=== PATIENT | female | born 1955 | race Caucasian/White ===

== ENCOUNTER → 2017-04-28 | Outpatient (CLI) | payer BC ==
[~2017-04-28] MED LIST: NO HOME MEDS
--- NOTE | 2017-04-29 07:53 | MAMMOGRAPHY REPORT ---
BILATERAL DIGITAL SCREENING MAMMOGRAM TOMOSYNTHESIS WITH CAD: 04/28/2017 CLINICAL HISTORY: Routine screening. Patient has no complaints. TECHNIQUE: Breast tomosynthesis in addition to standard 2D mammography was performed. Current study was also evaluated with a Computer Aided Detection (CAD) system. COMPARISON: Comparison is made to exams dated: 04/04/2015 mammogram, 04/26/2016 mammogram, 03/07/2014 valery mogram, 01/31/2012 mammogram, 12/03/2010 mammogram, and 09/01/2009 ultrasound - [facility] ter. BREAST COMPOSITION: The tissue of both breasts is heterogeneously dense, which may obscure small mas ses. FINDINGS: There is a 13 mm focal asymmetry with associated architectural distortion in the approxima te 9:00 posterior right breast, for which additional targeted ultrasound is recommended. Another que stionable area of distortion is identified in the lateral middle one third of the right breast on the CC view, for which additional spot compression tomosynthesis views and possible ultrasound are recom mended. There is a stable metallic biopsy marker clip in the left breast. No other suspicious mass, architec tural distortion or cluster of microcalcifications is seen bilaterally. IMPRESSION: ACR BI-RADS CATEGORY 0: INCOMPLETE EVALUATION: NEED ADDITIONAL IMAGING EVALUATION The 13 mm focal asymmetry with associated architectural distortion in the 9:00 posterior right breast , and possible architectural distortion in the lateral right breast need additional imaging evaluatio n. The patient will be called to schedule an appointment. Approximately 10% of breast cancers are not detected with mammography. A negative mammographic report should not delay biopsy if a clinically suggestive mass is present. Billie Barrow M.D. ay/:04/28/2017 21:17:04 Circulation Director: Sade CELESTIN)(Pope[place]), [facility] letter sent: Addl Imaging 0 BI-RADS Code: ACR BI-RADS Category 0: Incomplete Evaluation: Need Additional Imaging Evaluation
== END | disposition home or self-care (01) ==
LOC: C.MAMM 09:00
PROVIDERS: ATTEND Family Medicine
DX: R92.8 Other abnormal and inconclusive findings on diagnostic imaging of breast (principal); N64.89 Other specified disorders of breast

== ENCOUNTER → 2017-05-01 | Outpatient (CLI) | payer BC | END | disposition home or self-care (01) | LOC: C.PAPS 09:05 | PROVIDERS: ATTEND Obstetrics & Gynecology | DX: Z01.419 Encounter for gynecological examination (general) (routine) without abnormal findings (principal) ==

== ENCOUNTER → 2017-05-05 | Outpatient (CLI) | payer BC ==
--- NOTE | 2017-05-05 12:36 | MAMMOGRAPHY REPORT ---
UNILATERAL RIGHT DIGITAL DIAGNOSTIC MAMMOGRAM TOMOSYNTHESIS AND TARGETED RIGHT ULTRASOUND: 05/05/2017 CLINICAL HISTORY: 62-year-old woman called back from screening mammography for a focal asymmetry in t he 9:00 right breast. Family history of breast cancer = paternal aunt. History of prior right breas t benign surgery and left breast benign ultrasound-guided core biopsy. TECHNIQUE: Spot compression right CC and MLO 2-D and tomosynthesis images were obtained. COMPARISON: Comparison is made to exams dated: 04/28/2017 mammogram, 04/26/2016 mammogram, 04/04/2015 ma mmogram, 03/07/2014 mammogram, 03/04/2013 mammogram, and 01/31/2012 mammogram - [facility]. BREAST COMPOSITION: The tissue of the right breast is heterogeneously dense, which may obscure small masses. FINDINGS: There is a persistent irregular mass with associated architectural distortion in the 8:00 to 9:00 posterior right breast, measuring approximately 13 x 15 x 17 mm mammographically. No other f ocal area of distortion, mass or suspicious calcifications are seen in the right breast. Further radha luation with ultrasound was performed. Targeted ultrasound was performed in the 8:00 to 10:00 axes of the right breast and also in the right axilla. In the 8:00 axis, 8 cm from the nipple, there is an irregular hypoechoic shadowing mass alicja suring 15 x 12 x 9 mm. The ultrasound measurements may slightly underestimate the mass. This mass i s suspicious for malignancy and further evaluation with ultrasound-guided core needle biopsy is recom mended. Additional scanning performed in the right axilla demonstrates several lymph nodes with bord eligio thickened cortices. One in particular has a cortex measuring 3.4 mm which is indeterminate. Definitive characterization with an ultrasound-guided core biopsy is recommended to assess for the po ssibility of metastatic disease. IMPRESSION: ACR BI-RADS CATEGORY 5: HIGHLY SUGGESTIVE OF MALIGNANCY, TARGETED ULTRASOUND ACR BI-RADS CATEGORY 5: HIGHLY SUGGESTIVE OF MALIGNANCY 1. Ultrasound guided core needle biopsy is recommended for an indeterminate irregular 15 mm hypoecho ic shadowing mass in the 8:00 right breast, 8 cm from the nipple. 2. Ultrasound-guided core biopsy is also recommended for a lymph node in the right axilla with minim ally thickened cortex, to assess for the possibility of metastatic disease. These results and recommendations were discussed with the patient at the time of the exam. She tenta tively scheduled biopsies prior to leaving our department. Approximately 10% of breast cancers are not detected with mammography. A negative mammographic report should not delay biopsy if a clinically suggestive mass is present. Billie Barrow M.D. ay/:05/05/2017 09:06:36 Infrastructure Manager: Grace VIDAL(Aleks)(Popeye), [facility] letter sent: Abnormal 4/5 BI-RADS Code: ACR BI-RADS Category 5: Highly Suggestive Of Malignancy Ultrasound BI-RADS: ACR BI-RAD S Category 5: Highly Suggestive Of Malignancy
== END | disposition home or self-care (01) ==
LOC: C.MAMM 08:29
PROVIDERS: ATTEND Family Medicine
DX: N64.89 Other specified disorders of breast (principal); Z80.3 Family history of malignant neoplasm of breast; N63.0 Unspecified lump in unspecified breast

== ENCOUNTER → 2017-05-12 | Outpatient (CLI) | payer BC ==
--- NOTE | 2017-05-12 10:30 | Discharge Instructions ---
Discharge Instructions Procedure Procedure Date: May 12, 2017. Reason for visit: Right Mass, Right Axillary Node. Discharge Discharge Date: May 12, 2017. Discharge Diagnosis: post right breast and axillary lymph node ultrasound guided core biopsies Medications Restart Stopped Medication(s): May restart Aspirin tomorrow Instructions Activity Recommendations: Additional Limitations (see below) Return to School/Work: no limitations Recommended Home Diet: No Limitations Provider Instructions: ACTIVITY RECOMMENDATIONS: * No lifting, pushing, pulling or exercising the affected side for three days. RETURN TO SCHOOL/WORK: * You may return to work/school after the procedure, but do not perform any strenuous activities for 24 to 48 hours. MEDICATIONS: * Tylenol (two 325 mg) every four to six hours if needed for mild pain (if not allergic to Tylenol). DIET: * Resume previous diet. SPECIAL CARE INSTRUCTIONS: * Keep biopsy site dry for 24 hours. May shower after 24 hours, but do not soak (bathe) incision. * May remove Tegaderm (plastic patch) tomorrow AFTER showering. * Leave the steri-strips on for one week. Allow the steri-strips to fall off by themselves. If not off after one week, you may remove them. You may place a Bandaid crosswise over the strips, if desired. * Apply ice 10 minutes on and 10 minutes off as needed. * Wear a bra at bedtime to sleep more comfortably for 2-3 days. * Your referring physician should have the results after approximately 5 to 7 business days. * Call for unusual bleeding, fever, drainage, etc or if you have any questions call [phone] during normal business hours or after hours call Dr Barrow, . FOLLOW UP VISIT: Follow-up with Referring Physician as scheduled. Allergies Coded Allergies: Latex (Unverified Allergy, Severe, RASH, 03/16/14) NOTE WITH EXTENDED EXPOSURE Penicillins (Unverified Allergy, Severe, HIVES AND SWELLING, 03/16/14) Elio Valdez Recommendations: Call your doctor if: * Temperature above 101 degrees * Pain not relieved by pain medicine ordered * There is increased drainage or redness from any incision * You have any unanswered questions or concerns. Your Doctors Instructions noted above were prepared by provider Billie Barrow. Patient Signature Section: Patient Instructions Signature Page Pinky Alex Patient (or Guardian) Signature/Date: I have read and understand the instructions given to me by my caregivers. Caregiver/RN/Doctor Signature/Date: The above-named patient and/or guardian has received patient instructions on this date. + Original Patient Signature Page (only) stays with chart. Please make copy for patient.
--- NOTE | 2017-05-12 14:14 | MAMMOGRAPHY REPORT ---
ULTRASOUND GUIDED BIOPSY: 05/12/2017 CLINICAL HISTORY: Right axillary lymph node with undulating mildly thickened cortex. Patient present s for right axillary lymph node biopsy. An ultrasound guided core biopsy was also performed for a hy poechoic mass in the 8:00 right breast at the same time. Please refer to the report from right breast ultrasound guided core biopsy performed at the same time for full detail. IMPRESSION: ULTRASOUND GUIDED BIOPSY Please refer to the report from right breast ultrasound guided core biopsy performed at the same time for full detail. Billie Barrow M.D. ay/:05/12/2017 12:26:41 Intranet Support: Patricia Bauman, [facility]
--- NOTE | 2017-05-12 14:14 | MAMMOGRAPHY REPORT ---
MULTIPLE ULTRASOUND GUIDED BIOPSIES RIGHT BREAST: 05/12/2017 CLINICAL HISTORY: Indeterminate hypoechoic spicular mass in the 8:00 right breast, and right axillary lymph node with mildly prominent cortex. Patient presents for right breast and right axillary ultra sound guided core biopsy. COMPARISON: Comparison is made to exams dated: 05/05/2017 ultrasound, 05/05/2017 mammogram, 04/28/2017 mammogram, 04/26/2016 mammogram, 04/04/2015 mammogram, and 03/07/2014 mammogram - [facility]ter. PATIENT CONSENT: The procedure, risks and benefits were discussed with the patient and informed conse nt was obtained both verbally and in writing. Specific risks to this procedure include: bleeding, in fection, puncture of adjacent structure, nontarget biopsy, sampling error, pain, metal allergy and me dication reaction. PROCEDURE DESCRIPTION: First repeat targeted ultrasound was performed in the 8:00 axis of the right b reast and right axilla for planning and targeting purposes during the biopsies. A hypoechoic shadowi ng solid mass is again seen in the 8:00 right breast and this is the intended target for ultrasound-g uided core biopsy. The lymph node with undulating and mildly thickened cortex in the right axilla is also identified, also amenable to ultrasound-guided core needle biopsy. A time out was performed and the right breast and axilla were agreed as the sites of biopsy. The ski n was prepped and draped in the usual sterile fashion. First, the hypoechoic shadowing mass in the 8 :00 right breast was chosen as the target for biopsy. Subcutaneous and intraparenchymal 1% buffered l idocaine, with and without epinephrine, was administered as local anesthesia. A skin incision was mad e. Through the incision, 4 samples were taken with a 14 gauge Achieve biopsy device. A ribbon shaped metallic marker was placed at the biopsy site. Hemostasis was achieved after manual compression. The patient tolerated the procedure well and there was no immediate complication. Then, the right axillary lymph node with undulating and mildly thickened cortex was identified and ta rgeted for biopsy. Additional 1% buffered lidocaine without epinephrine was administered as local an esthesia. A small skin incision was made. Through the incision, 3 core biopsy samples were taken wi th an 18-gauge quick core biopsy device. A ring shaped metallic marker was placed within this lymph node after biopsy. The patient tolerated the procedure well and there was no immediate consultation. Hemostasis was achieved after several minutes of manual compression. All of the samples were sent to the pathology department in appropriately labeled containers. Postprocedure right CC and ML tomosynthesis images were obtained. A new ribbon-shaped biopsy marker clip is seen within the spiculated mass in the 8:00 posterior right breast, without evidence of surro unding hematoma. A ring shaped biopsy marker clip is seen within a right axillary lymph node on the MLO view. No significant axillary hematoma is seen. IMPRESSION: ULTRASOUND GUIDED BIOPSY Status post ultrasound-guided core biopsy of a suspicious right 8:00 breast mass, and right axillary lymph node with mildly thickened cortex. The patient will receive notification of the biopsy results from her referring physician. Billie Barrow M.D. ay/:05/12/2017 12:30:29 Attending Technologist: Dr. Billie Barrow, [facility] [address] [facility] Cnp: Patricia Bauman, [facility] [address]
--- NOTE | 2017-05-12 14:16 | MAMMOGRAPHY REPORT ---
UNILATERAL RIGHT DIGITAL DIAGNOSTIC MAMMOGRAM TOMOSYNTHESIS: 05/12/2017 CLINICAL HISTORY: Status post ultrasound guided core biopsy of an indeterminate hypoechoic solid mass in the 8:00 right breast, and right axillary lymph node with mildly thickened cortex. Please refer to the report from right breast ultrasound guided core biopsy performed at the same time for full detail. IMPRESSION: POST PROCEDURE IMAGING FOR MARKER PLACEMENT Please refer to the report from right breast ultrasound guided core biopsy performed at the same time for full detail. Approximately 10% of breast cancers are not detected with mammography. A negative mammographic report should not delay biopsy if a clinically suggestive mass is present. Billie Barrow M.D. ay/:05/12/2017 10:32:57 [employer] Supervisor: Patricia Bauman, [facility] BI-RADS Code: Post Procedure Imaging For Marker Placement
== END | disposition home or self-care (01) ==
LOC: C.MAMM 09:32
PROVIDERS: ATTEND Family Medicine
DX: R92.8 Other abnormal and inconclusive findings on diagnostic imaging of breast (principal); N63.10 Unspecified lump in the right breast, unspecified quadrant; C50.911 Malignant neoplasm of unspecified site of right female breast

== ENCOUNTER 2017-06-04 08:14 | Observation (INO) | payer BC ==
--- NOTE | 2017-05-28 08:53 | PAT Medication Instructions ---
Service Date May 28, 2017. Current Home Medication List Aspirin (Aspirin Ec), 81 MG PO QAM Calcium Carbonate-Vitamin D (Calcium + D), 1 TAB PO QAM Cetirizine (Zyrtec), 10 MG PO PRN Ibuprofen Tab (Advil), 400 MG PO PRN Medication Instructions For Your Scheduled Surgery - Held prior to breast bx: Aspirin (Aspirin Ec), 81 MG PO QAM - Hold the following medications the morning of surgery: Calcium Carbonate-Vitamin D (Calcium + D), 1 TAB PO QAM Cetirizine (Zyrtec), 10 MG PO PRN Ibuprofen Tab (Advil), 400 MG PO PRN (otherwise okay to continue per surgeon) Nothing to eat or drink after midnight If you have any questions please call us at [phone] or [phone] or [phone]
[2017-05-28 10:16] LABS: BASO % 0.2 %; BASO ABS # 0.02 K/uL (0-0.2); COMPLETE YES; EOS % 4.2 %; IG% 0.7 %; LYMPH % 31.4 %; LYMPH ABS # 2.75 K/uL (1.2-3.4); MEAN CELL VOLUME 99.1 fL (80-100); MEAN CORPUSCULAR HEMOGLOBIN 33.8 pg (25-34); MEAN CORPUSCULAR HGB CONC 34.1 g/dl (32-36); MEAN PLATELET VOLUME 10.2 fL (7.4-10.4); MONO % 8.7 %; NEUT % 54.8 %; PLATELET COUNT 314 K/uL (130-400); RED BLOOD COUNT 4.64 M/uL (4.2-5.4); WHITE BLOOD COUNT 8.77 K/uL (4.8-10.8)
[2017-05-28 10:28] LABS: BUN/CREATININE RATIO 22.5 (10-20); CALCIUM 9.4 mg/dl (8.5-10.1); CREATININE 0.88 mg/dl (0.60-1.20); POTASSIUM 5.2 mmol/L (3.5-5.1)
[~2017-06-04] VITALS: Ht 147.3 cm; Wt 66.0 kg
[2017-06-04] VITALS (7 sets, daily range): BP systolic 114–150; BP diastolic 66–86; PULSE 72–81; TEMP 36.4–36.9; O2SAT 94–98; Ht 147.3 cm; Wt 66.0 kg
[~2017-06-04 08:14] MED LIST changes: +ASPI81TA28 PO; +CALC600T9 PO; +CETI10TA84 PO; +CLINDAMYCIN IV 900 MG in DEXTROSE 5% 100ML 100 ML IV SCH; +CLINDAMYCIN IV 900 MG in DEXTROSE 5% 50ML 50 ML IV SCH; +IBUP-103 PO; -NO HOME MEDS; +SODIUM CHLORIDE 0.9% 1000ML 1,000 ML IV SCH
--- NOTE | 2017-06-04 09:34 | History & Physical Bridge Note ---
H&P Re-Evaluation Bridge Note: I have examined the patient, reviewed the History & Physical and in the interval since the performance of the History & Physical I have noted the following changes of clinical significance: No changes noted
--- NOTE | 2017-06-04 10:48 | DIAGNOSTIC IMAGING REPORT ---
LYMPHOSCINTIGRAPHY CLINICAL HISTORY: Right breast cancer. PROCEDURE: Using standard sterile technique, 4 intradermal periareolar and one deep injection of 0.482 mCi of Lymphoseek was placed in the right breast. The patient tolerated the procedure well. There were no immediate complications. The patient was subsequently transported to the surgical suite. No imaging was obtained at the referring physician's request. IMPRESSION: Injection of 0.482 mCi of Lymphoseek in the right breast. Electronically signed by: Kenji Hanna M.D. 06/04/2017 10:47 AM Dictated Date/Time: 06/04/2017 10:47 AM
[2017-06-04 11:21] LABS: BUN/CREATININE RATIO 24.9 (10-20); CALCIUM 8.5 mg/dl (8.5-10.1); CREATININE 0.73 mg/dl (0.60-1.20); POTASSIUM 4.2 mmol/L (3.5-5.1)
[2017-06-04] MEDS ORDERED: FENTANYL CITRATE INJ 50 MCG/1 ML 2 ML VIAL ONE ×2 (12:58→15:08)
[2017-06-04] MEDS ORDERED: MIDAZOLAM HCL 1 MG/ML 2ML VIAL ONE (12:58)
[2017-06-04] MEDS ORDERED: BUPIVACAINE 0.5 % 5 MG/1 ML MPF 30ML VIAL ONE (14:34)
[2017-06-04] MEDS ORDERED: METHYLENE BLUE 0.5% 10 ML VIAL ONE (14:34)
[2017-06-04] MEDS ORDERED: ONDANSETRON INJ 2 MG/ML 2 ML VIAL ONE (14:38)
[2017-06-04] MEDS ORDERED: LIDOCAINE HCL 2% 2 ML VIAL (20MG/ML) ONE (14:38)
[2017-06-04] MEDS ORDERED: PROPOFOL IV EMULSION 10 MG/ML 20 ML VIAL IV ONE (14:38)
[2017-06-04] MEDS ORDERED: DEXAMETHASONE SOD INJ 4 MG/ML VIAL ONE (14:38)
[2017-06-04] MEDS ORDERED: EpHEDrine SULFATE INJ 50 MG/ML AMP IV PRN (14:45)
[2017-06-04] MEDS ORDERED: ATROPINE SULFATE 0.1 MG/ML 5ML SYR IV PRN (14:45)
[2017-06-04] MEDS ORDERED: FENTANYL CITRATE INJ 50 MCG/1 ML 2 ML VIAL IV PRN (14:45)
[2017-06-04] MEDS ORDERED: PROMETHAZINE HCL INJ 12.5 MG in SODIUM CHLORIDE 0.9% 50ML 50 ML IV PRN ×2 (14:45→16:30)
[2017-06-04] MEDS ORDERED: NALOXONE HCL 0.4 MG/1 ML VIAL/CARP IV PRN (14:45)
[2017-06-04] MEDS ORDERED: FLUMAZENIL 0.1 MG/1 ML 10 ML VIAL IV PRN (14:45)
[2017-06-04] MEDS ORDERED: LABETALOL HCL IV 5 MG/ML 20ML IV PRN (14:45)
[2017-06-04] MEDS ORDERED: ONDANSETRON INJ 2 MG/ML 2 ML VIAL IV PRN ×2 (14:45→16:00)
[2017-06-04] MEDS ORDERED: EpHEDrine SULFATE 50MG/5ML SYR ONE (15:08)
--- NOTE | 2017-06-04 15:32 | MAMMOGRAPHY REPORT ---
UNILATERAL RIGHT DIGITAL DIAGNOSTIC MAMMOGRAM TOMOSYNTHESIS: 06/04/2017 CLINICAL HISTORY: Biopsy proven carcinoma in the 8:00 posterior right breast. Patient presents for p reoperative needle and wire localization. These images were obtained after ultrasound guided localiz ation to assess alignment of the localizing needle and wire with the biopsy marker clip. Please refer to the report from right breast ultrasound-guided needle localization performed at the s bennett time for full detail. IMPRESSION: Please refer to the report from right breast ultrasound-guided needle localization performed at the s bennett time for full detail. Approximately 10% of breast cancers are not detected with mammography. A negative mammographic report should not delay biopsy if a clinically suggestive mass is present. Billie Barrow M.D. ay/:06/04/2017 12:25:47 Otolaryngology Physician: Patricia VIDAL(Aleks)(M), [facility] BI-RADS Code: n/a
--- NOTE | 2017-06-04 15:48 | [facility] Operative Report ---
Operative Report Operative Date Jun 04, 2017. Pre-Operative Diagnosis Right Breast Cancer Post-Operative Diagnosis Right Breast Cancer Procedure(s) Performed Right Breast Lumpectomy with Needle Localization and Right [place] Lymph Node Biopsy Surgeon Dr. Harley Pickle Pumper Surgeon(s) Vladimir Quigley PA-C Estimated Blood Loss 20 cc Findings breast tissue, old bx scar, addnl Rt axillary tissue Specimens Frozen #1 Right [place] Lymph Node picked up at 1507 Permanent A: Right Axillary Node B: Right Breast Tissue needle lateral, long silk anterior superior, short silk medial C: Additional Right Breast Tissue long silk anterior, short silk inferior edge, double short silk superior, methylene blue new margin Anesthesia gen Complication(s) None Disposition Recovery Room / PACU I attest to the content of the Intraoperative Record and any orders documented therein. Any exceptions are noted below.
[2017-06-04] MEDS ORDERED: MoRPHine SULFATE 4 MG/ML 1 ML CARP\\VIAL IV PRN (16:00)
[2017-06-04] MEDS ORDERED: HYDROCODONE/ACETAMOPHEN 5/325MG TAB PO PRN ×2 (16:00)
[2017-06-04] MEDS ORDERED: LORAZEPAM INJ 0.5 MG in SYRINGE 0.25 ML IV PRN (16:00)
[2017-06-04] MEDS ORDERED: MoRPHine SULFATE 2 MG/ML CARP IV PRN (16:00)
[2017-06-04] MEDS ORDERED: PROMETHAZINE HCL INJ 25 MG in SODIUM CHLORIDE 0.9% 50ML 50 ML IV PRN (16:00)
--- NOTE | 2017-06-04 16:30 | Anesthesiology Progress Note ---
Anesthesia Post Op Note Date & Time Jun 04, 2017 at 16:30 Vital Signs Pain Intensity: 4 Vital Signs Past 12 Hours Date Time Temp Pulse Resp B/P (MAP) Pulse Ox O2 Delivery O2 Flow Rate FiO2 06/04/17 16:20 74 11 128/74 100 Oxymask 10 06/04/17 16:10 77 10 141/79 100 Oxymask 10 06/04/17 16:02 36.0 100 15 134/78 99 Oxymask 10 06/04/17 10:38 36.9 73 18 150/86 (107) 98 Room Air Notes Mental Status: alert / awake / arousable, participated in evaluation Pt Amnestic to Procedure: Yes Nausea / Vomiting: adequately controlled Pain: adequately controlled Airway Patency, RR, SpO2: stable & adequate BP & HR: stable & adequate Hydration State: stable & adequate Anesthetic Complications: no major complications apparent
--- NOTE | 2017-06-04 17:32 | OPERATIVE REPORT ---
DATE OF OPERATION: 06/04/2017 NAME OF OPERATION: Right partial mastectomy and sentinel lymph node biopsy. PREOPERATIVE DIAGNOSIS: Right breast cancer. POSTOPERATIVE DIAGNOSIS: Same. STAFF SURGEON: Dr. Harley. VPK TEACHER: Ishmael Quigley PA-C. ANESTHESIA: General. PROCEDURE IN DETAIL: The patient was brought in the operating room and placed on the operating table in supine position. Her right breast and axilla were prepped and draped in the usual fashion. She had a needle placed in the lateral right breast and also had an injection for sentinel lymph node biopsy. Using 0.5% plain Marcaine, incision was made in the right axilla, carrying dissection down deeply into the axilla, identifying a sentinel lymph node which had high activity. Prior to that I did see 2 other lymph nodes which were sent for permanent section. The sentinel lymph node was negative. At this point, during the frozen section, lumpectomy was performed, making an incision laterally and inferiorly in the right breast around the needle, carrying dissection down, excising the tissue. Initial tissue, the needle was lateral, long silk suture medial, short silk suture superior anterior. This was placed into the Faxitron and sent to Dr. Barrow. The biopsy specimen area was in the center of the tissue. At this point, I took additional tissue around where the mass was suspected to be inferiorly, medially and superiorly as well as anterior. The tissue was marked with a long silk suture anterior, short silk suture inferior, double silk superior with methylene blue on the new margin. This seemed to incorporate scar tissue from an old biopsy site where she also had a metal marker. At this point deep tissue was reapproximated in both sites using 2-0 plain catgut suture. Then the axillary skin closed using 4-0 nylon suture, breast skin closed using interrupted 5-0 Prolene suture. Dressings applied and patient transferred to recovery room in stable condition. I attest to the content of the Intraoperative Record and any orders documented therein. Any exception s are noted below.
[2017-06-04] MEDS ORDERED: IV FLUIDS COMPLETED PRN (17:45)
[2017-06-04] MEDS ORDERED: LACTATED RINGER'S 1000ML 1,000 ML IV SCH (18:45)
[2017-06-04] MEDS: CLINDAMYCIN IV 600 MG in DEXTROSE 5% 50ML 50 ML IV SCH (21:28)
[2017-06-04] MEDS ORDERED: CLINDAMYCIN 600 MG/54 ML D5W IV SCH (22:00)
[2017-06-05 03:21] VITALS: BP 104/65; PULSE 74; TEMP 36.5; O2SAT 96
[2017-06-05] MEDS: CLINDAMYCIN IV 600 MG in DEXTROSE 5% 50ML 50 ML IV SCH (05:38)
[2017-06-05] MEDS ORDERED: HYDR-5688 PO (05:56)
--- NOTE | 2017-06-05 05:58 | Discharge Instructions ---
Discharge Instructions Date of Service Jun 05, 2017. Admission Reason for Admission: Right Breast Cancer W/Hosp Loc & Lymph Inj Discharge Discharge Diagnosis / Problem: breast cancer Discharge Goals Goal(s): Decrease discomfort, Improve function, Improve disease control Activity Recommendations Activity Limitations: as noted below Lifting Limitations: no more than 25 pounds Exercise/Sports Limitations: until after follow-up appointment May Resume Sexual Activity: when tolerated Shower/Bathe: tomorrow Driving or Machine Use: wait 4-[address] SPECIAL CARE INSTRUCTIONS: * Cover incisions and change daily for comfort/drainage. * May use ibuprofen for pain as tolerated. * Expect some swelling and bruising. Call your doctor if: * Temperature above 101 degrees * Pain not relieved by pain medicine ordered * There is increased drainage or redness from any incision * You have any unanswered questions or concerns [phone]. FOLLOW UP VISIT: If not already scheduled, please call the office for a follow-up visit. for next week- some suture removal OFFICE PHONE NUMBER: Dr. Harley Office . Current Hospital Diet Patient's current hospital diet: Regular Diet Discharge Diet Recommended Diet: Regular Diet Procedures Procedures Performed: Right Breast Lumpectomy with Needle Localization and Right [place] Lymph Node Biopsy Pending Studies Studies pending at discharge: no Medical Emergencies . Who to Call and When: Medical Emergencies: If at any time you feel your situation is an emergency, please call 911 immediately. . Non-Emergent Contact Non-Emergency issues call your: Primary Care Provider, Surgeon . "Provider Documentation" section prepared by Reynaldo Harley. . VTE Core Measure Inpt VTE Proph given/why not?: SCD's
--- NOTE | 2017-06-05 06:40 | DISCHARGE SUMMARY ---
PRINCIPAL DIAGNOSIS: Right breast cancer. PROCEDURES: The patient underwent right partial mastectomy with sentinel lymph node biopsy. HISTORY OF PRESENT ILLNESS: The patient is a 62-year-old female who underwent a core biopsy of the right breast showing a breast cancer. She was brought into the hospital on 06/04/2017 where she underwent needle localization and breast injection and then right partial mastectomy with sentinel lymph node biopsy. She tolerated the procedure well and has done well overnight and is felt stable for discharge home today to be followed in the surgical clinic next week.
[2017-06-05 06:56] VITALS: BP 104/65; PULSE 74; TEMP 36.5; O2SAT 96
[2017-06-05 07:35] VITALS: BP 119/75; PULSE 66; TEMP 36.6; O2SAT 96
--- NOTE | 2017-06-05 07:44 | MAMMOGRAPHY REPORT ---
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 She presents for preoperative needle and wire localization. COMPARISON: Comparison is made to exams dated: 05/12/2017 ultrasound biopsy, 05/12/2017 mammogram, 05/12/2017 ultrasound biopsy, 05/05/2017 ultrasound, 05/05/2017 mammogram, and 04/28/2017 mammogram - [facility]. PATIENT CONSENT: The risks of the procedure were explained to the patient and informed consent was ob tained. The patient denied any or drinking anything this morning that would preclude anesthesia. Sh e also denied allergy to lidocaine. PROCEDURE DESCRIPTION: Post procedure mammograms dated 05/12/2017 were reviewed. The hypoechoic adore d and spiculated mass in the 8:00 right breast is the intended target for preoperative localization. The patient was positioned supine with right arm extended above head. The skin of the right breast was cleansed with Betadine. 1% buffered Lidocaine without epinephrine was administered as local anes thesia. A 7.5cm Thakur II needle and wire combination was inserted into the breast. Optimal position ing was confirmed and the wire was locked in place, leaving both the needle and wire within the breas t, as per surgeon's preference. Post localization right CC and MLO 2-D and tomosynthesis images were obtained. The localizing needle and wire combination is visualized abutting the biopsy marker clip and extending through the mass in question. The entire procedure including approach and needle lengt h were discussed with the operating surgeon prior to surgery. The patient tolerated the procedure we ll and there was no immediate complication. She was sent to the operating room in satisfactory condi tion. The specimen radiograph demonstrates the localizing needle and wire, as well as a central mass with i nternal biopsy marker clip. These findings are compatible with successful preoperative localization and subsequent surgical excision. IMPRESSION: NEEDLE LOCALIZATION Status post successful preoperative localization of biopsy-proven carcinoma in the 8:00 right breast. The imaged specimen includes the intended abnormality. The patient will receive notification of the pathology results from her referring physician. Billie Barrow M.D. ay/:06/04/2017 16:32:33 Attending Technologist: Patricia CELESTIN)(M), [facility] Business Systems Administrator: Dr. Billie Barrow, [facility]
--- NOTE | 2017-06-16 12:48 | OPERATIVE REPORT ---
DATE OF OPERATION: 06/04/2017 ADDENDUM This is an addendum of the operation on 06/04/2017, which was a right partial mastectomy with sentinel lymph node biopsy with my assisted living assistant, Ishmael Quigley. My physician assisted living assistant, Ishmael Quigley, helped me during this operation to perform prepping and draping of the patient and then was instrumental in retraction during the sentinel lymph node biopsy as well as utilization of this Neoprobe. He was also instrumental in helping to retract during the right partial mastectomy as well as closure of both incisions of the deep tissue and then also of the skin. He also helped with placing of dressings at the end of the procedure. I attest to the content of the Intraoperative Record and any orders documented therein. Any exception s are noted below.
== END 2017-06-05 09:51 | disposition home or self-care (01) ==
LOC: C.ACU 08:14 → C.MSW 13:45 → ENRESERV 16:23
PROVIDERS: ADMIT Surgery; ATTEND Surgery
DX: C50.911 Malignant neoplasm of unspecified site of right female breast (principal); E78.5 Hyperlipidemia, unspecified; F17.200 Nicotine dependence, unspecified, uncomplicated; Z79.82 Long term (current) use of aspirin; J44.9 Chronic obstructive pulmonary disease, unspecified; E66.9 Obesity, unspecified; Z98.51 Tubal ligation status

== ENCOUNTER → 2017-06-20 | Outpatient (CLI) | payer BC ==
[~2017-06-20] MED LIST changes: -CLINDAMYCIN IV 900 MG in DEXTROSE 5% 100ML 100 ML IV SCH; -CLINDAMYCIN IV 900 MG in DEXTROSE 5% 50ML 50 ML IV SCH; +HYDR-5688 PO; -SODIUM CHLORIDE 0.9% 1000ML 1,000 ML IV SCH
--- NOTE | 2017-06-23 14:47 | MAMMOGRAPHY REPORT ---
BREAST MRI OF BOTH BREASTS : 06/20/2017 CLINICAL HISTORY: Recent right breast lumpectomy which showed invasive carcinoma as well as DCIS. Th e medial, superior, and inferior margins were positive for DCIS. The margins were negative for invas mee carcinoma. [place] lymph node biopsy was negative for hal metastasis. COMPARISON: Comparison is made to exams dated: 06/04/2017 mammogram, 05/12/2017 ultrasound biopsy, 05/12/2017 mammogram, 06/04/2017 specimen, 05/12/2017 ultrasound biopsy, and 05/05/2017 mammogram - [facility]. Technique: The patient was placed prone in a dedicated breast imaging coil. Precontrast axial T1-antonio ghted, axial T2-weighted fat saturation, and axial T1-weighted fat saturation images were obtained. After the administration of 6 mL of Gadavist IV contrast, sequential T1-weighted fat saturation image s were obtained. Subtraction images were obtained of the dynamic contrast enhanced sequences, and 3- D reformations were performed. The [employer] software was used for kinetic analysis. Findings: Right breast: There is mild background parenchymal enhancement. There are postsurgical changes in th e right breast from recent lumpectomy. There is a large T2 hyperintense fluid collection in the righ t breast, centered in the right central breast and extending superiorly to the 12:00 breast and infer iorly to the right lower outer quadrant at approximately 7:00. The collection measures up to 2.0 x 7 .1 x 4.5 cm and is consistent with a postsurgical seroma/hematoma (series 4 image 40, series 6 image 99). There is a rim of enhancement surrounding the fluid collection, which is predominately thin alt aylin is slightly thicker along the lateral aspect of the seroma in the right lower outer quadrant (s eries 91328 image 78). Additionally, there is ill-defined non-mass enhancement surrounding the super ior portion of the fluid collection and extending superiorly to the right upper outer quadrant at rose roximately 11:00. The non-mass enhancement is ill-defined and therefore difficult to measure but ext ends approximately 3.9 cm superior to the fluid collection (series 6 image 103 and series 32421 image s 45-60). No discrete nodular/mass-like enhancement is seen within the right breast. The enhancemen t surrounding the fluid collection is nonspecific on imaging and could represent postsurgical changes versus residual DCIS. Left breast: There is minimal background parenchymal enhancement. There is a 3 mm focus of enhanceme nt within the left breast at approximately 9:30 middle depth (series 99481 image 69). This demonstra arvind no corresponding T2 hyperintensity and a mixed kinetic pattern including washout kinetics. This is indeterminate and MRI guided core needle biopsy is recommended for further evaluation. There are other small enhancing foci scattered within the left breast, which are probably benign and likely rep resent normal background parenchymal enhancement. Clip artifact is seen within the left 11:00 breast . Post surgical changes are noted in the right axilla from sentinel lymph node biopsy, including a T2 h yperintense fluid collection with a thin rim of enhancement in the high right axilla measuring 2.6 x 2.1 cm, consistent with a postsurgical hematoma/seroma. There are mildly prominent right axillary ly mph nodes, which are likely benign given that sentinel lymph node biopsy and prior core needle biopsy of right axillary lymph nodes yielded no evidence of metastases. There is no evidence of left axill madhav adenopathy. The chest wall structures are negative. Extramammary soft tissues are grossly unrema rkable. IMPRESSION: ACR BI-RADS CATEGORY 6: KNOWN BIOPSY PROVEN MALIGNANCY 1. Status post right lumpectomy, with large 7.1 x 4.5 cm postsurgical fluid collection in the right breast extending from 12:00 to the right lower outer quadrant. Ill-defined non-mass enhancement is s een surrounding the fluid collection, which extends at least 3.9 cm superior to the fluid collection. The enhancement is nonspecific on imaging and could represent postsurgical changes versus residual D CIS. 2. Small 3 mm focus of enhancement in the left breast at 9:30, which demonstrates corresponding wash out kinetics. The focus is indeterminate and tissue sampling is recommended, especially in the setti ng of right breast cancer. As second look ultrasound would likely be unyielding, MRI-guided core nee dle biopsy is recommended. 3. Other small scattered enhancing foci seen within the left breast, which are probably benign and l ikely represent normal background parenchymal enhancement. Pending benign pathology results of the l eft breast biopsy, recommend follow-up breast MRI in 6 months to confirm stability. Connie Calderon M.D. 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
== END | disposition home or self-care (01) ==
LOC: C.MRI 13:07
PROVIDERS: ATTEND Surgery
DX: C50.911 Malignant neoplasm of unspecified site of right female breast (principal)

== ENCOUNTER → 2017-06-24 | Outpatient (CLI) | payer BC ==
[~2017-06-24] MED LIST changes: +GADAVIST IV PRN
--- NOTE | 2017-06-24 16:52 | ECHOCARDIOGRAM REPORT ---
*NOTICE TO RECEIVING CONSTITUTION PARTY AGENCY This information is strictly Confidential and protected under [place] law. [place] law prohibits you from making any further disclosure of this information unless further disclosure is expressly permitted by the written consent of the person to whom it pertains or is authorized by law. A general authorization for the release of medical or other information is not sufficient for this purpose. Hospital accepts no responsibility if the information is made available to any other person, INCLUDING THE PATIENT. Interpretation Summary * Name: RAEANN KENNEDY Study Date: 06/24/2017 02:52 PM BP: 153/73 mmHg * Patient Location: [facility] HR: 89 * : 1955 (M/d/yyyy) Gender: Female Height: 67 in * Age: 62 yrs Ethnicity: CA Weight: 143 lb * Ordering Physician: Shemar Koo * Performed By: Shila Baeza RDCS * * Reason For Study: Breast Cancer * BSA: 1.8 m2 * -- Conclusions -- * Left ventricular systolic function is normal. * Grade I diastolic dysfunction, (abnormal relaxation pattern). * Right ventricular systolic pressure is normal. Procedure Details * A complete two-dimensional transthoracic echocardiogram was performed (2D, M-mode, Doppler and color flow Doppler). * The study was technically difficult. * The study was technically difficult, but visualization was adequate with the administration of Definity ultrasound contrast. * A contrast injection of Definity was performed to improve assessment of LV function. * Contrast was injected into an intravenous site in the left arm. * One vial of Definity ultrasound contrast was diluted in normal saline to a total volume of 10 ml. A total of '3' ml of solution was administered during imaging. * Lot # [id number] of Definity utilized for procedure. * Expiration date 1DEC18. * The attending nurse who injected the contrast agent was Sebastian Weaver RN. Left Ventricle * The left ventricle is normal in size. * There is normal left ventricular wall thickness. * Ejection Fraction = 55-60%. * Left ventricular systolic function is normal. * Grade I diastolic dysfunction, (abnormal relaxation pattern). * The left ventricular wall motion is normal. Right Ventricle * The right ventricle is normal in size and function. * The right ventricular systolic function is normal as assessed by tricuspid annular plane systolic excursion (TAPSE) (normal >1.5 cm). Atria * The left atrial size is normal. * Right atrial size is normal. Mitral Valve * The mitral valve anatomy is normal. * There is no mitral regurgitation noted. Tricuspid Valve * The tricuspid valve is not well visualized, but is grossly normal. * There is mild tricuspid regurgitation. * Right ventricular systolic pressure is normal. Aortic Valve * The aortic valve is normal in structure and function. * The aortic valve is trileaflet. * No hemodynamically significant valvular aortic stenosis. * There is no significant aortic regurgitation. Great Vessels * The aortic root is normal size. Pericardium/Pleural * There is no pericardial effusion. Great Vessels * Normal inferior vena cava size and collapsability with sniff indicates a normal right atrial pressure of 3 mmHg MMode 2D Measurements and Calculations IVSd 1.0 cm IVSs 1.3 cm LVIDd 3.4 cm LVIDs 2.4 cm LVPWd 0.77 cm LVPWs 1.2 cm IVS/LVPW 1.3 FS 28.9 % EDV(Teich) 46.7 ml ESV(Teich) 20.2 ml EF(Teich) 56.7 % EDV(cubed) 38.6 ml ESV(cubed) 13.9 ml EF(cubed) 64.0 % % IVS thick 28.8 % % LVPW thick 60.0 % LV mass(C)d 84.0 grams LV mass(C)dI 47.9 grams/m\S\2 LV mass(C)s 90.6 grams LV mass(C)sI 51.7 grams/m\S\2 SV(Teich) 26.5 ml SI(Teich) 15.1 ml/m\S\2 SV(cubed) 24.7 ml SI(cubed) 14.1 ml/m\S\2 Ao root diam 2.2 cm Ao root area 3.9 cm\S\2 ACS 1.8 cm LA dimension 2.3 cm LA/Ao 1.0 LVAd ap4 22.1 cm\S\2 LVLd ap4 6.9 cm EDV(MOD-sp4) 60.1 ml EDV(sp4-el) 60.2 ml LVAs ap4 13.3 cm\S\2 LVLs ap4 5.6 cm ESV(MOD-sp4) 27.4 ml ESV(sp4-el) 26.6 ml EF(MOD-sp4) 54.5 % EF(sp4-el) 55.9 % LVAd ap2 22.2 cm\S\2 LVLd ap2 7.9 cm EDV(MOD-sp2) 51.2 ml EDV(sp2-el) 53.5 ml LVAs ap2 12.1 cm\S\2 LVLs ap2 6.7 cm ESV(MOD-sp2) 18.8 ml ESV(sp2-el) 18.6 ml EF(MOD-sp2) 63.3 % EF(sp2-el) 65.2 % LVLd %diff 12.1 % EDV(MOD-bp) 59.1 ml LVLs %diff 15.3 % ESV(MOD-bp) 24.4 ml EF(MOD-bp) 58.7 % SV(MOD-sp4) 32.8 ml SI(MOD-sp4) 18.7 ml/m\S\2 SV(MOD-sp2) 32.4 ml SI(MOD-sp2) 18.5 ml/m\S\2 SV(MOD-bp) 34.7 ml SI(MOD-bp) 19.8 ml/m\S\2 SV(sp4-el) 33.7 ml SI(sp4-el) 19.2 ml/m\S\2 SV(sp2-el) 34.8 ml SI(sp2-el) 19.9 ml/m\S\2 Doppler Measurements and Calculations MV E max francis 76.6 cm/sec MV A max francis 100.3 cm/sec MV E/A 0.76 MV dec time 0.28 sec Ao V2 max 151.0 cm/sec Ao max PG 9.1 mmHg Ao max PG (full) 2.1 mmHg LV V1 max PG 7.1 mmHg LV V1 max 132.8 cm/sec PA V2 max 106.1 cm/sec PA max PG 4.5 mmHg PI max francis 121.7 cm/sec PI max PG 5.9 mmHg PI dec slope 244.2 cm/sec\S\2 PI P1/2t 145.9 msec TR max francis 221.7 cm/sec
== END | disposition home or self-care (01) ==
LOC: C.CPL 14:41
PROVIDERS: ATTEND Internal Medicine Hematology & Oncology
DX: C50.911 Malignant neoplasm of unspecified site of right female breast (principal)

== ENCOUNTER → 2017-07-03 | Outpatient (CLI) | payer BC ==
[~2017-07-03] MED LIST changes: +LIDO/EPINEPHRINE/SOD BICARB 20 ML VIAL INFIL ONE; +XYLOCAINE 1%/SOD BICARB 20 ML VIAL INFIL ONE
--- NOTE | 2017-07-03 11:42 | Discharge Instructions ---
Discharge Instructions Procedure Procedure Date: Jul 03, 2017. Reason for visit: Bilateral Enhancements--Latex Allergy. Discharge Discharge Date: Jul 03, 2017. Discharge Diagnosis: status post breast biopsy Instructions Activity Recommendations: Additional Limitations (see below) Return to School/Work: no limitations Recommended Home Diet: No Limitations Provider Instructions: ACTIVITY RECOMMENDATIONS: * No lifting, pushing, pulling or exercising the affected side for three days. RETURN TO SCHOOL/WORK: * You may return to work/school after the procedure, but do not perform any strenuous activities for 24 to 48 hours. MEDICATIONS: * Tylenol (two 325 mg) every four to six hours if needed for mild pain (if not allergic to Tylenol). DIET: * Resume previous diet. SPECIAL CARE INSTRUCTIONS: * Keep biopsy site dry for 24 hours. May shower after 24 hours, but do not soak (bathe) incision. * May remove Tegaderm (plastic patch) tomorrow AFTER showering. * Leave the steri-strips on for one week. Allow the steri-strips to fall off by themselves. If not off after one week, you may remove them. You may place a Bandaid crosswise over the strips, if desired. * Apply ice 10 minutes on and 10 minutes off as needed. * Wear a bra at bedtime to sleep more comfortably for 2-3 days. * Your referring physician should have the results after approximately 5 to 7 business days. * Call for unusual bleeding, fever, drainage, etc or if you have any questions call during normal business hours or after hours call Dr Calderon, [phone]. FOLLOW UP VISIT: Follow-up with Referring Physician as scheduled. Allergies Coded Allergies: Latex (Unverified Allergy, Severe, BLISTERY RASH WITH LONG EXPOSURE, ) Penicillins (Unverified Allergy, Severe, HIVES AND SWELLING, 06/04/17) Elio Vadlez Recommendations: Call your doctor if: * Temperature above 101 degrees * Pain not relieved by pain medicine ordered * There is increased drainage or redness from any incision * You have any unanswered questions or concerns. Your Doctors Instructions noted above were prepared by provider Connie Calderon. Patient Signature Section: Patient Instructions Signature Page Pinky Alex Patient (or Guardian) Signature/Date: I have read and understand the instructions given to me by my caregivers. Caregiver/RN/Doctor Signature/Date: The above-named patient and/or guardian has received patient instructions on this date. + Original Patient Signature Page (only) stays with chart. Please make copy for patient.
--- NOTE | 2017-07-03 14:35 | MAMMOGRAPHY REPORT ---
BILATERAL DIGITAL DIAGNOSTIC MAMMOGRAM: 07/03/2017 CLINICAL HISTORY: Status post bilateral MRI guided biopsy. TECHNIQUE: Postprocedural Bilateral CC and ML views were obtained. COMPARISON: Comparison is made to exams dated: 07/03/2017 MRI biopsy, 06/20/2017 breast MRI, 05/05/20 17 mammogram, 04/28/2017 mammogram, 04/26/2016 mammogram, and 04/04/2015 mammogram - [facility]. BREAST COMPOSITION: The tissue of both breasts is heterogeneously dense, which may obscure small mas ses. FINDINGS: A new dumbbell-shaped biopsy marker clip is seen within the left medial breast at approxim ately 9:00 at the site of the MRI guided core needle biopsy of a focus of enhancement. A biopsy joseph er clip from remote biopsy is seen within the left superior breast. A new dumbbell-shaped biopsy mar ker clip is seen within the right upper outer quadrant at the site of MRI guided biopsy of non-mass e nhancement. No significant postbiopsy hematoma is seen. IMPRESSION: POST PROCEDURE IMAGING FOR MARKER PLACEMENT New biopsy marker clips status post bilateral MRI guided core needle biopsies. Pathology results are pending. Approximately 10% of breast cancers are not detected with mammography. A negative mammographic report should not delay biopsy if a clinically suggestive mass is present. Connie Calderon M.D. /:07/03/2017 14:02:52 Schedule Maker: Grace CELESTIN)([place]), [facility] BI-RADS Code: Post Procedure Imaging For Marker Placement
--- NOTE | 2017-07-04 13:54 | MAMMOGRAPHY REPORT ---
MRI BIOPSIES BOTH BREASTS: 07/03/2017 CLINICAL HISTORY: Status post right lumpectomy, with ill-defined non-mass enhancement seen extending superior to the surgical bed on recent breast MRI which is indeterminate for residual DCIS. Addition ally, a small focus of enhancement is seen within the left breast at 9:30 on recent breast MRI. COMPARISON: Comparison is made to exams dated: 06/20/2017 breast MRI, 06/04/2017 mammogram, 06/04/2017 localization, 05/12/2017 ultrasound biopsy, and 05/12/2017 mammogram - [facility]. Technique: Written informed consent was obtained from the patient after discussion of the procedure a s well as risks of MRI guided core needle biopsy. A preprocedural timeout was performed prior to sta rting the procedure. The patient was placed prone on a 1.5 Coty MR scanner. The lateral aspect of both breasts were kevin nsed with ChloraPrep. Both breasts were positioned in a dedicated breast coil and MRI guidance grid device. After localizing sequences were obtained, pre-and postcontrast axial sequences were performed which c onfirm the persistence of the non-mass enhancement in the right upper outer breast and enhancing focu s in the left breast at 9:30. 6.5 mL of Gadavist IV contrast was administered. Using the images, ta rgeting was performed using the [employer] software. The skin on both sides was prepped with Betadine through the grid and after local anesthesia was achi eved (1% lidocaine to anesthetize the skin and 1% lidocaine with epinephrine to anesthetize the deepe r tissues), introducer sheath and localizing obturators were placed into both sites using lateral rose roaches bilaterally. The location of the obturator sheaths were confirmed with additional images. Subsequently, multiple samples were obtained from both sites using Suros 9-gauge vacuum-assisted core biopsy devices. Postprocedural images demonstrate postbiopsy changes in the expected location of th e targeted lesions bilaterally. Through the introducer sheaths, marker clips were placed. Direct pr essure was held at the biopsy sites until hemostasis was achieved. The patient tolerated the procedure without immediate complication. Mammography was obtained at the breast center after completion of the biopsy to confirm marker clip placement. Please see the separa te dictation of the exam for further details. The specimens were sent to pathology for analysis. Wo und care instructions were given to the patient. IMPRESSION: MRI BIOPSY MRI guided core needle biopsy x2, of non-mass enhancement in the right upper outer quadrant and enhan cing focus in the left 9:30 breast, with clip placement. The patient will receive pathology results from her referring provider. Connie Calderon M.D. ah/:07/03/2017 15:48:26 Security Orderly: finisher denture, [facility]
== END | disposition home or self-care (01) ==
LOC: C.MRI 09:25
PROVIDERS: ATTEND Surgery
DX: R92.8 Other abnormal and inconclusive findings on diagnostic imaging of breast (principal); N64.89 Other specified disorders of breast; D05.01 Lobular carcinoma in situ of right breast

== ENCOUNTER → 2017-07-16 | Day surgery (SDC) | payer BC ==
[~2017-07-16] VITALS: Ht 147.3 cm; Wt 66.4 kg
[~2017-07-16] MED LIST changes: -ASPI81TA28 PO; -CALC600T9 PO; +CEFAZOLIN 1000MG IV PUSH 5 ML IV SCH; +CEFAZOLIN SOD 1 GM VIAL ONE; +CLINDAMYCIN IV 900 MG in DEXTROSE 5% 50ML 44 ML IV SCH; +DEXAMETHASONE SOD INJ 4 MG/ML VIAL ONE; +FENTANYL CITRATE INJ 50 MCG/1 ML 2 ML VIAL ONE; -GADAVIST IV PRN; +HEPARIN SOD (PORCINE) 1000 UNIT/ML 10 ML VIAL ONE; +HYDROCODONE/ACETAMOPHEN 5/325MG TAB PO PRN; -IBUP-103 PO; +LACTATED RINGER'S 1000ML 1,000 ML IV SCH; -LIDO/EPINEPHRINE/SOD BICARB 20 ML VIAL INFIL ONE; +LIDOCAINE HCL 1% 20 ML VIAL ONE; +LIDOCAINE HCL 2% 2 ML VIAL (20MG/ML) ONE; +MIDAZOLAM HCL 1 MG/ML 2ML VIAL ONE; +ONDANSETRON INJ 2 MG/ML 2 ML VIAL IV PRN; +ONDANSETRON INJ 2 MG/ML 2 ML VIAL ONE; +PROPOFOL IV EMULSION 10 MG/ML 20 ML VIAL IV ONE; +THROMBIN FOR SOLN 20000 UNIT KIT ONE; -XYLOCAINE 1%/SOD BICARB 20 ML VIAL INFIL ONE
[2017-07-16 08:40] VITALS: BP 142/84; PULSE 72; TEMP 36.7; O2SAT 98; Ht 147.3 cm; Wt 66.4 kg
--- NOTE | 2017-07-16 10:26 | Discharge Instructions ---
Discharge Instructions Date of Service Jul 16, 2017. Visit Reason for Visit: Right Breast Cancer Discharge Discharge Diagnosis / Problem: A-port placement Discharge Goals Goal(s): Therapeutic intervention Activity Recommendations Activity Limitations: as noted below Lifting Limitations: no more than 10 pounds Shower/Bathe: keep incision dry (for 2 days) Driving or Machine Use: resume 3 days after discharge Anesthesia . Post Anesthesia Instructions: If you have had General Anesthesia or IV Sedation: * Do not drive today. * Resume driving when surgeon permits. * Do not make important decisions or sign legal documents today. * Call surgeon for: 1. Temperature elevations greater than 101 degrees F. 2. Uncontrollable pain. 3. Excessive bleeding. 4. Persistent nausea and vomiting. 5. Medication intolerance (nausea, vomiting or rash). * For nausea and vomiting use only clear liquids such as: tea, soda, bouillon until nausea subsides, then gradually increase diet as tolerated. * If you have any concerns or questions, call your surgeon's office. If physician is unavailable and it is an emergency, call 911 or go to the nearest emergency room. . Instructions / Follow-Up Instructions / Follow-Up Dr. Harley's office in 2 weeks for suture removal, call [phone] to schedule OK for port to be used Diet Recommendations Recommended Home Diet: no limitations Pending Studies Studies pending at discharge: no Medical Emergencies . Who to Call and When: Medical Emergencies: If at any time you feel your situation is an emergency, please call 911 immediately. . Non-Emergent Contact Non-Emergency issues call your: Surgeon Call Non-Emergent contact if: you have a fever, temperature is above 101.5, your pain is not controlled, wound has increased redness, you have any medication questions . . "Provider Documentation" section prepared by Ishmael Quigley. .
--- NOTE | 2017-07-16 11:32 | [facility] Operative Report ---
Operative Report Operative Date Jul 16, 2017. Pre-Operative Diagnosis right breast cancer Post-Operative Diagnosis right breast cancer Procedure(s) Performed Insertion of A-Port into Left Cephalic Vein Surgeon Dr. Charles Harley Switching Clerk Surgeon(s) none Estimated Blood Loss 5mL Findings placed via Lt cephalic vein Specimens none per surgeon Anesthesia local/ sedation Complication(s) None Disposition Recovery Room / PACU I attest to the content of the Intraoperative Record and any orders documented therein. Any exceptions are noted below.
--- NOTE | 2017-07-16 11:54 | Anesthesiology Progress Note ---
Anesthesia Post Op Note Date & Time Jul 16, 2017 at 11:54 Vital Signs Pain Intensity: 0 Vital Signs Past 12 Hours Date Time Temp Pulse Resp B/P (MAP) Pulse Ox O2 Delivery O2 Flow Rate FiO2 07/16/17 11:50 61 16 133/90 99 Room Air 07/16/17 11:40 61 16 137/83 99 Room Air 07/16/17 11:34 36.2 64 16 127/89 100 Oxymask 10 07/16/17 08:40 36.7 72 18 142/84 (103) 98 Room Air Notes Mental Status: alert / awake / arousable, participated in evaluation Pt Amnestic to Procedure: Yes Nausea / Vomiting: adequately controlled Pain: adequately controlled Airway Patency, RR, SpO2: stable & adequate BP & HR: stable & adequate Hydration State: stable & adequate Anesthetic Complications: no major complications apparent
[2017-07-16 12:00] VITALS: BP 139/85; PULSE 65; TEMP 36.4; O2SAT 100
--- NOTE | 2017-07-16 12:02 | OPERATIVE REPORT ---
DATE OF OPERATION: 07/16/2017 NAME OF OPERATION: Port placement. PREOPERATIVE DIAGNOSIS: Breast cancer. POSTOPERATIVE DIAGNOSIS: Same. STAFF SURGEON: Dr. Harley. ANESTHESIA: 1% plain lidocaine with sedation. DESCRIPTION OF PROCEDURE: The patient was brought in the operating room and placed on the operating table in supine position. Her chest was prepped and draped in usual fashion. A 1% plain lidocaine was used to anesthetize skin and subcutaneous tissue over the left deltopectoral groove. Incision made carrying dissection down through significant adipose tissue, identifying the cephalic vein. It was ligated distally using 2-0 silk suture and then opened. A catheter was passed under fluoroscopy into the superior vena cava, secured using a 2-0 silk suture. The catheter was aspirated and flushed with heparinized solution. A pocket was fashioned in the subcutaneous space and then the port attached to the catheter and then placed into the subcutaneous pocket and secured using 3-0 Prolene suture. The subcutaneous tissue was then reapproximated using 2-0 chromic catgut suture, then the skin reapproximated using 4-0 nylon suture. Dressing applied and patient transferred to recovery room in stable condition. I attest to the content of the Intraoperative Record and any orders documented therein. Any exception s are noted below.
[2017-07-16 12:28] VITALS: BP 151/84; PULSE 74; O2SAT 97
--- NOTE | 2017-07-16 12:48 | DIAGNOSTIC IMAGING REPORT ---
SINGLE VIEW CHEST CLINICAL HISTORY: Infusion port placement. FINDINGS: An AP, portable, upright chest radiograph is obtained. No prior studies are available for comparison at the time of dictation. The examination is degraded by portable technique and patient rotation. A left subclavian central venous infusion port has been placed. The tip projects over the cavoatrial junction. The cardiomediastinal silhouette is unremarkable. A calcified granuloma is seen in the right lower lung. The lungs and pleural spaces are otherwise clear. No pneumothorax is seen. The skeletal structures are osteopenic. The bony thorax is grossly intact. IMPRESSION: 1. A left subclavian central venous infusion port has been placed as above. No pneumothorax is seen post procedure. 2. The lungs are clear. Electronically signed by: Kenji Hanna M.D. 07/16/2017 12:47 PM Dictated Date/Time: 07/16/2017 12:40 PM
[2017-07-16 12:54] VITALS: BP 145/80; PULSE 70; TEMP 36.6; O2SAT 99
--- NOTE | 2017-07-16 14:39 | OPERATIVE REPORT ---
DATE OF OPERATION: 07/16/2017 NAME OF OPERATION: Fluoroscopy for a port placement. STAFF SURGEON: Dr. Harley. ANESTHESIA: General. PROCEDURE: The patient was in the operating room undergoing port placement. We did use fluoroscopy to place the port into the superior vena cava adequately. I attest to the content of the Intraoperative Record and any orders documented therein. Any exception s are noted below.
== END | disposition home or self-care (01) ==
LOC: C.ACU 07:57
PROVIDERS: ATTEND Surgery
DX: D05.11 Intraductal carcinoma in situ of right breast (principal); F17.200 Nicotine dependence, unspecified, uncomplicated; Z79.82 Long term (current) use of aspirin; Z79.899 Other long term (current) drug therapy

== ENCOUNTER → 2017-10-06 | Outpatient (CLI) | payer OTHER ==
[~2017-10-06] MED LIST changes: -CEFAZOLIN 1000MG IV PUSH 5 ML IV SCH; -CEFAZOLIN SOD 1 GM VIAL ONE; -CLINDAMYCIN IV 900 MG in DEXTROSE 5% 50ML 44 ML IV SCH; -DEXAMETHASONE SOD INJ 4 MG/ML VIAL ONE; -FENTANYL CITRATE INJ 50 MCG/1 ML 2 ML VIAL ONE; -HEPARIN SOD (PORCINE) 1000 UNIT/ML 10 ML VIAL ONE; -HYDROCODONE/ACETAMOPHEN 5/325MG TAB PO PRN; -LACTATED RINGER'S 1000ML 1,000 ML IV SCH; -LIDOCAINE HCL 1% 20 ML VIAL ONE; -LIDOCAINE HCL 2% 2 ML VIAL (20MG/ML) ONE; -MIDAZOLAM HCL 1 MG/ML 2ML VIAL ONE; -ONDANSETRON INJ 2 MG/ML 2 ML VIAL IV PRN; -ONDANSETRON INJ 2 MG/ML 2 ML VIAL ONE; +OPTIRAY 320 IV PRN; -PROPOFOL IV EMULSION 10 MG/ML 20 ML VIAL IV ONE; -THROMBIN FOR SOLN 20000 UNIT KIT ONE
--- NOTE | 2017-10-06 20:35 | DIAGNOSTIC IMAGING REPORT ---
(CHEST FOR PE) ANGIO WITH CT DOSE: 341.30 mGycm HISTORY: Chest pain dyspnea TECHNIQUE: Multiaxial CT images of the chest were performed following the intravenous administration of contrast to evaluate the pulmonary arteries. Maximal intensity projection images were also obtained. A dose lowering technique was utilized adhering to the principles of ALARA. COMPARISON STUDY: None. FINDINGS: There is a normal caliber thoracic aorta with no evidence for dissection. There is no evidence for pulmonary embolus. No pleural effusions. No pneumothorax. The liver and spleen are unremarkable. No mediastinal or hilar lymphadenopathy. The central airways are patent. The lungs are clear. IMPRESSION: No evidence for pulmonary embolus. The lungs are clear. The above report was generated using voice recognition software. It may contain grammatical, syntax or spelling errors. Electronically signed by: Lenin Kee M.D. 10/06/2017 8:34 PM Dictated Date/Time: 10/06/2017 8:30 PM
[2017-10-06 20:38] LABS: CREATININE 0.79 mg/dl (0.60-1.20)
== END | disposition home or self-care (01) ==
LOC: C.CTS 19:50
PROVIDERS: ATTEND Family Medicine
DX: Z85.9 Personal history of malignant neoplasm, unspecified (principal); R00.0 Tachycardia, unspecified; R79.1 Abnormal coagulation profile

== ENCOUNTER → 2017-10-06 | Outpatient (CLI) | payer OTHER ==
[~2017-10-06] MED LIST changes: -OPTIRAY 320 IV PRN
--- NOTE | 2017-10-06 12:49 | DIAGNOSTIC IMAGING REPORT ---
CHEST 2 VIEWS ROUTINE HISTORY: 62 years-old Female COUGH acute cough COMPARISON: Chest radiograph 07/16/2017 TECHNIQUE: PA and lateral views of the chest FINDINGS: Cardiac silhouette is within normal limits in size. Left subclavian [id number]-s-Hmqk catheter is unchanged in positioning. Calcified granuloma of the right lower lobe redemonstrated. Linear subsegmental atelectasis or scarring of the lingula. There is no pneumothorax, pleural effusion, focal airspace consolidation or overt pulmonary edema. The bones of the chest appear grossly intact. IMPRESSION: Linear subsegmental opacity of the lingula suggests atelectasis or scarring. The above report was generated using voice recognition software. It may contain grammatical, syntax or spelling errors. Electronically signed by: Salomón Wright M.D. 10/06/2017 12:48 PM Dictated Date/Time: 10/06/2017 12:46 PM
== END | disposition home or self-care (01) ==
LOC: C.RAD1850 12:34
PROVIDERS: ATTEND Family Medicine
DX: R05 Cough (principal); R91.8 Other nonspecific abnormal finding of lung field

== ENCOUNTER → 2017-12-03 | Outpatient (CLI) | payer OTHER ==
[~2017-12-03] MED LIST changes: +PERFLUTREN LIPID MICROSPHERE (DEFINITY) IV ONE
--- NOTE | 2017-12-03 16:31 | ECHOCARDIOGRAM REPORT ---
*NOTICE TO RECEIVING [employer] AGENCY This information is strictly Confidential and protected under [place] law. [place] law prohibits you from making any further disclosure of this information unless further disclosure is expressly permitted by the written consent of the person to whom it pertains or is authorized by law. A general authorization for the release of medical or other information is not sufficient for this purpose. Hospital accepts no responsibility if the information is made available to any other person, INCLUDING THE PATIENT. Interpretation Summary * Name: RAEANN KENNEDY Study Date: 12/03/2017 01:05 PM BP: 128/55 mmHg * Patient Location: [facility] HR: 94 * : 1955 (M/d/yyyy) Gender: Female Height: 59 in * Age: 62 yrs Ethnicity: [place] Weight: 146 lb * Ordering Physician: Shemar Koo * Referring Physician: Shemar Koo * Performed By: Shila Baeza RDCS * * Reason For Study: Neoplasm * BSA: 1.6 m2 * -- Conclusions -- * Left ventricular systolic function is normal. * No regional wall motion abnormalities noted. * Ejection Fraction = 60-65%. * There is borderline concentric left ventricular hypertrophy. * Grade I diastolic dysfunction, (abnormal relaxation pattern). * There is mild tricuspid regurgitation. * Compared with study dated 06/24/2017, no significant change. Procedure Details * A complete two-dimensional transthoracic echocardiogram was performed (2D, M-mode, Doppler and color flow Doppler). * The study was technically difficult. * The study was technically difficult, but visualization was adequate with the administration of Definity ultrasound contrast. * A contrast injection of Definity was performed to improve assessment of LV function. * Contrast was injected into an intravenous site in the central line. * One vial of Definity ultrasound contrast was diluted in normal saline to a total volume of 10 ml. A total of '1' ml of solution was administered during imaging. * Lot # [id number] of Definity utilized for procedure. * Expiration date 1FEB. * The attending nurse who injected the contrast agent was Sangeetha Ramesh RN. Left Ventricle * The left ventricle is normal in size. * There is borderline concentric left ventricular hypertrophy. * Ejection Fraction = 60-65%. * Left ventricular systolic function is normal. * No regional wall motion abnormalities noted. Right Ventricle * The right ventricle is normal size. * The right ventricular systolic function is normal as assessed by tricuspid annular plane systolic excursion (TAPSE) (normal >1.5 cm). Atria * The left atrial size is normal. * Right atrial size is normal. * No ASD detected; PFO is not assessed. Mitral Valve * The mitral valve anatomy is normal. * There is no mitral valve stenosis. * Significant mitral regurgitation is absent. Tricuspid Valve * The tricuspid valve anatomy is normal. * There is no tricuspid stenosis. * There is mild tricuspid regurgitation. Aortic Valve * The aortic valve is normal in structure and function. * Aortic stenosis is absent. * No aortic regurgitation is present. Pulmonic Valve * The pulmonary valve is not well seen, but the Doppler examination is normal without significant regurgitation or stenosis. Great Vessels * The aortic root is normal size. * The pulmonary is not well visualized. Pericardium/Pleural * There is no pericardial effusion. Great Vessels * Normal inferior vena cava size and collapsability with sniff indicates a normal right atrial pressure of 3 mmHg Left Ventricular Diastolic Function * Grade I diastolic dysfunction, (abnormal relaxation pattern). MMode 2D Measurements and Calculations IVSd 0.92 cm IVSs 1.2 cm LVIDd 3.5 cm LVIDs 2.3 cm LVPWd 1.1 cm LVPWs 1.6 cm IVS/LVPW 0.87 FS 35.2 % EDV(Teich) 52.2 ml ESV(Teich) 18.0 ml EF(Teich) 65.6 % EDV(cubed) 44.2 ml ESV(cubed) 12.0 ml EF(cubed) 72.8 % % IVS thick 33.0 % % LVPW thick 52.1 % LV mass(C)d 102.5 grams LV mass(C)dI 63.5 grams/m\S\2 LV mass(C)s 101.5 grams LV mass(C)sI 62.9 grams/m\S\2 SV(Teich) 34.2 ml SI(Teich) 21.2 ml/m\S\2 SV(cubed) 32.2 ml SI(cubed) 20.0 ml/m\S\2 Ao root diam 2.8 cm Ao root area 5.9 cm\S\2 ACS 1.8 cm LA dimension 2.5 cm LA/Ao 0.91 LVAd ap4 24.5 cm\S\2 LVLd ap4 7.6 cm EDV(MOD-sp4) 65.3 ml EDV(sp4-el) 66.7 ml LVAs ap4 11.8 cm\S\2 LVLs ap4 6.4 cm ESV(MOD-sp4) 20.2 ml ESV(sp4-el) 18.5 ml EF(MOD-sp4) 69.1 % EF(sp4-el) 72.2 % LVAd ap2 25.1 cm\S\2 LVLd ap2 7.3 cm EDV(MOD-sp2) 73.8 ml EDV(sp2-el) 73.3 ml LVAs ap2 11.4 cm\S\2 LVLs ap2 5.2 cm ESV(MOD-sp2) 21.6 ml ESV(sp2-el) 21.3 ml EF(MOD-sp2) 70.8 % EF(sp2-el) 70.9 % LVLd %diff -4.10 % EDV(MOD-bp) 71.3 ml LVLs %diff -23.69 % ESV(MOD-bp) 23.1 ml EF(MOD-bp) 67.6 % SV(MOD-sp4) 45.1 ml SI(MOD-sp4) 28.0 ml/m\S\2 SV(MOD-sp2) 52.2 ml SI(MOD-sp2) 32.4 ml/m\S\2 SV(MOD-bp) 48.1 ml SI(MOD-bp) 29.8 ml/m\S\2 SV(sp4-el) 48.1 ml SI(sp4-el) 29.8 ml/m\S\2 SV(sp2-el) 52.0 ml SI(sp2-el) 32.2 ml/m\S\2 Doppler Measurements and Calculations MV E max francis 72.8 cm/sec MV A max francis 92.7 cm/sec MV E/A 0.78 MV dec time 0.17 sec Ao V2 max 147.8 cm/sec Ao max PG 8.7 mmHg Ao max PG (full) 2.7 mmHg LV V1 max PG 6.0 mmHg LV V1 max 122.9 cm/sec PA V2 max 96.6 cm/sec PA max PG 3.7 mmHg PI max francis 173.4 cm/sec PI max PG 12.0 mmHg PI dec slope 419.3 cm/sec\S\2 PI P1/2t 121.1 msec TR max francis 224.2 cm/sec
== END | disposition home or self-care (01) ==
LOC: C.CPL 12:43
PROVIDERS: ATTEND Internal Medicine Hematology & Oncology
DX: C50.411 Malignant neoplasm of upper-outer quadrant of right female breast (principal)

== ENCOUNTER → 2017-12-15 | Outpatient (CLI) | payer OTHER ==
[~2017-12-15] MED LIST changes: -PERFLUTREN LIPID MICROSPHERE (DEFINITY) IV ONE
[2017-12-15 13:40] LABS: BASO % 0.2 %; BASO ABS # 0.01 K/uL (0-0.2); EOS % 2.7 %; EOS ABS # 0.15 K/uL (0-0.5); HEMATOCRIT 36.3 % (37-47); IG# 0.02 K/uL (0.00-0.02); LYMPH % 33.5 %; LYMPH ABS # 1.83 K/uL (1.2-3.4); MEAN CELL VOLUME 108.4 fL (80-100); MEAN CORPUSCULAR HEMOGLOBIN 35.8 pg (25-34); MEAN CORPUSCULAR HGB CONC 33.1 g/dl (32-36); MEAN PLATELET VOLUME 8.5 fL (7.4-10.4); MONO % 11.9 %; MONO ABS # 0.65 K/uL (0.11-0.59); NEUT % 51.3 %; PLATELET COUNT 242 K/uL (130-400); RED CELL DISTRIBUTION WIDTH CV 13.4 % (11.5-14.5); WHITE BLOOD COUNT 5.46 K/uL (4.8-10.8)
[2017-12-15 14:11] LABS: ALBUMIN 3.9 gm/dl (3.4-5.0); ALKALINE PHOSPHATASE 71 U/L (45-117); ALT/SGPT 24 U/L (12-78); AST/SGOT 21 U/L (15-37); BLOOD UREA NITROGEN 13 mg/dl (7-18); CALCIUM 8.9 mg/dl (8.5-10.1); CARBON DIOXIDE 28 mmol/L (21-32); GLUCOSE 100 mg/dl (70-99); POTASSIUM 3.7 mmol/L (3.5-5.1); SODIUM 140 mmol/L (136-145); TOTAL PROTEIN 7.4 gm/dl (6.4-8.2)
== END | disposition home or self-care (01) ==
LOC: C.LABCCP 13:28
PROVIDERS: ATTEND Internal Medicine Hematology & Oncology
DX: C50.411 Malignant neoplasm of upper-outer quadrant of right female breast (principal)

== ENCOUNTER → 2018-03-03 | Outpatient (CLI) | payer OTHER ==
[~2018-03-03] MED LIST changes: -CETI10TA84 PO
--- NOTE | 2018-03-03 15:34 | ECHOCARDIOGRAM REPORT ---
*NOTICE TO RECEIVING [employer] AGENCY This information is strictly Confidential and protected under [place] law. [place] law prohibits you from making any further disclosure of this information unless further disclosure is expressly permitted by the written consent of the person to whom it pertains or is authorized by law. A general authorization for the release of medical or other information is not sufficient for this purpose. Hospital accepts no responsibility if the information is made available to any other person, INCLUDING THE PATIENT. Interpretation Summary * Name: RAEANN KENNEDY Study Date: 03/03/2018 01:05 PM BP: 127/95 mmHg * Patient Location: [facility] HR: 74 * : 1955 (M/d/yyyy) Gender: Female Height: 59 in * Age: 63 yrs Ethnicity: [place] Weight: 146 lb * Ordering Physician: Shemar Koo * Referring Physician: Shemar Koo * Performed By: Dasia Florez RCS * * Reason For Study: BREAST [place] * BSA: 1.6 m2 * -- Conclusions -- * There is mild asymmetric left ventricular hypertrophy. * Left ventricular systolic function is normal. * Right ventricular systolic pressure is normal. * Compared to a study from 12/2017, there is no change Procedure Details * A complete two-dimensional transthoracic echocardiogram was performed (2D, M-mode, Doppler and color flow Doppler). Left Ventricle * The left ventricle is normal in size. * There is mild asymmetric left ventricular hypertrophy. * Left ventricular systolic function is normal. * Ejection Fraction = 55-60%. * The left ventricular wall motion is normal. Right Ventricle * The right ventricle is normal in size and function. Atria * The left atrial size is normal. * Right atrial size is normal. Mitral Valve * The mitral valve is grossly normal. * Significant mitral regurgitation is absent. Tricuspid Valve * The tricuspid valve is not well visualized, but is grossly normal. * There is mild tricuspid regurgitation. * Right ventricular systolic pressure is normal. Aortic Valve * The aortic valve is normal in structure and function. * The aortic valve is trileaflet. * No hemodynamically significant valvular aortic stenosis. * There is no significant aortic regurgitation. Pulmonic Valve * The pulmonic valve is not well visualized. Great Vessels * The aortic root is normal size. Pericardium/Pleural * There is no pericardial effusion. MMode 2D Measurements and Calculations IVSd 1.5 cm IVSs 1.4 cm LVIDd 3.0 cm LVIDs 2.3 cm LVPWd 1.0 cm LVPWs 1.2 cm IVS/LVPW 1.5 FS 23.9 % EDV(Teich) 35.1 ml ESV(Teich) 17.9 ml EF(Teich) 49.1 % EDV(cubed) 27.1 ml ESV(cubed) 12.0 ml EF(cubed) 55.9 % % IVS thick -1.44 % % LVPW thick 17.4 % LV mass(C)d 113.3 grams LV mass(C)dI 70.2 grams/m\S\2 LV mass(C)s 88.1 grams LV mass(C)sI 54.6 grams/m\S\2 SV(Teich) 17.2 ml SI(Teich) 10.7 ml/m\S\2 SV(cubed) 15.1 ml SI(cubed) 9.4 ml/m\S\2 Ao root diam 2.8 cm Ao root area 6.4 cm\S\2 LA dimension 2.6 cm LA/Ao 0.90 LVOT diam 1.8 cm LVOT area 2.6 cm\S\2 LVAd ap4 24.0 cm\S\2 LVLd ap4 7.7 cm EDV(MOD-sp4) 60.8 ml EDV(sp4-el) 63.4 ml LVAs ap4 16.8 cm\S\2 LVLs ap4 6.8 cm ESV(MOD-sp4) 34.7 ml ESV(sp4-el) 35.3 ml EF(MOD-sp4) 42.9 % EF(sp4-el) 44.4 % LVAd ap2 26.5 cm\S\2 LVLd ap2 7.7 cm EDV(MOD-sp2) 72.6 ml EDV(sp2-el) 77.3 ml LVAs ap2 18.9 cm\S\2 LVLs ap2 6.8 cm ESV(MOD-sp2) 42.3 ml ESV(sp2-el) 44.4 ml EF(MOD-sp2) 41.8 % EF(sp2-el) 42.5 % LVLd %diff 0.06 % EDV(MOD-bp) 66.4 ml LVLs %diff 1.3 % ESV(MOD-bp) 38.1 ml EF(MOD-bp) 42.6 % SV(MOD-sp4) 26.1 ml SI(MOD-sp4) 16.2 ml/m\S\2 SV(MOD-sp2) 30.4 ml SI(MOD-sp2) 18.8 ml/m\S\2 SV(MOD-bp) 28.3 ml SI(MOD-bp) 17.5 ml/m\S\2 SV(sp4-el) 28.1 ml SI(sp4-el) 17.4 ml/m\S\2 SV(sp2-el) 32.9 ml SI(sp2-el) 20.4 ml/m\S\2 Doppler Measurements and Calculations PA V2 max 81.1 cm/sec PA max PG 2.6 mmHg PI max francis 169.1 cm/sec PI max PG 11.4 mmHg PI dec slope 236.1 cm/sec\S\2 PI P1/2t 209.8 msec TR max francis 188.9 cm/sec
== END | disposition home or self-care (01) ==
LOC: C.CPL 12:53
PROVIDERS: ATTEND Internal Medicine Hematology & Oncology
DX: C50.411 Malignant neoplasm of upper-outer quadrant of right female breast (principal)

== ENCOUNTER → 2018-03-27 | Outpatient (CLI) | payer OTHER ==
[2018-03-27 09:18] LABS: BASO % 0.3 %; BASO ABS # 0.02 K/uL (0-0.2); EOS % 3.9 %; EOS ABS # 0.25 K/uL (0-0.5); HEMATOCRIT 39.7 % (37-47); HEMOGLOBIN 13.3 g/dL (12.0-16.0); IG# 0.04 K/uL (0.00-0.02); LYMPH % 35.1 %; LYMPH ABS # 2.23 K/uL (1.2-3.4); MEAN CELL VOLUME 100.5 fL (80-100); MEAN CORPUSCULAR HEMOGLOBIN 33.7 pg (25-34); MEAN CORPUSCULAR HGB CONC 33.5 g/dl (32-36); MEAN PLATELET VOLUME 9.5 fL (7.4-10.4); MONO % 7.7 %; MONO ABS # 0.49 K/uL (0.11-0.59); NEUT % 52.4 %; NEUT ABS # 3.33 K/uL (1.4-6.5); PLATELET COUNT 271 K/uL (130-400); RED CELL DISTRIBUTION WIDTH CV 12.7 % (11.5-14.5); RED CELL DISTRIBUTION WIDTH SD 46.9 fL (36.4-46.3); WHITE BLOOD COUNT 6.36 K/uL (4.8-10.8)
[2018-03-27 09:40] LABS: ALBUMIN 3.9 gm/dl (3.4-5.0); ALT/SGPT 21 U/L (12-78); AST/SGOT 17 U/L (15-37); BLOOD UREA NITROGEN 19 mg/dl (7-18); CARBON DIOXIDE 26 mmol/L (21-32); CREATININE 0.82 mg/dl (0.60-1.20); GLUCOSE 95 mg/dl (70-99); SODIUM 140 mmol/L (136-145)
[2018-03-27 09:41] LABS: ALKALINE PHOSPHATASE 74 U/L (45-117); TOTAL PROTEIN 7.5 gm/dl (6.4-8.2)
== END | disposition home or self-care (01) ==
LOC: C.LABSPEC 09:02
PROVIDERS: ATTEND Internal Medicine Hematology & Oncology
DX: C50.411 Malignant neoplasm of upper-outer quadrant of right female breast (principal)